=== PATIENT | female | born 1930 | race Caucasian/White ===

== ENCOUNTER 2017-09-17 20:27 | Emergency (ER) | payer MEDICARE, OTHER ==
[~2017-09-17] VITALS: Ht 154.9 cm; Wt 125.2 kg
[~2017-09-17 20:27] MED LIST: ACET500 PO; ALBU90OI INH; ASPI81CH PO; Albuterol2.5 MG/0.5 INH; Augmentin 875-1 EACH PO; BISA5EC PO; CYCL10 PO; DOXY100 PO; FENTANYL1 EAC1 TOP; FURO40 PO; Ferrous Sulfat324 MG PO; Flagyl500 MG PO; GABA300 PO; HYDACE5 PO; HYDR1TAB94 PO; LEVOXYL; LEVSOD100 PO; LIDO700A20 TOP; LISI20 PO; MAGCIT300 PO; METR500 PO; MIRALAX17 GM PO; Norco 5-325 Ta1 EACH PO; OMEP10ER PO; ONDA4ODT MM; OXYB5 PO; PANT40 PO; PARO10 PO; PRED20 PO; ROXICODONE5 MG PO; SACC250C PO; SPIR25 PO; STOOL SOFTNER; VICODIN; XARELTO20 MG PO
[2017-09-17 22:13] LABS: BASOPHILS ABSOLUTE AUTO 0.04 K/mm3 (0.00-0.23); BASOPHILS PERCENT AUTO 0 % (0-2); EOSINOPHILS ABSOLUTE AUTO 0.02 K/mm3 (0.00-0.68); EOSINOPHILS PERCENT AUTO 0 % (0-6); Hematocrit 41.7 % (33.0-51.0); IMMATURE GRAN ABSOLUTE AUTO 0.11 K/mm3 (0.00-0.10); IMMATURE GRAN PERCENT AUTO 1 % (0-1); LYMPHOCYTES ABSOLUTE AUTO 0.45 K/mm3 (0.84-5.20); LYMPHOCYTES PERCENT AUTO 3 % (21-46); MONOCYTES PERCENT AUTO 4 % (4-13); Mean Corpuscular HGB 30.8 pg (26.0-34.0); Mean Corpuscular HGB Conc 31.2 g/dL (31.5-36.5); Mean Corpuscular Volume 99 fL (80-100); Mean Platelet Volume 9.9 fL (9.1-12.4); NEUTROPHILS ABSOLUTE AUTO 16.84 K/mm3 (1.96-9.15); NEUTROPHILS PERCENT AUTO 93 % (41-73); Platelet Count 212 K/mm3 (150-400); RDW Coefficient Variation 13.2 % (11.7-14.2); RDW Standard Deviation 47.9 fL (35.1-46.3); Red Blood Cell Count 4.22 M/mm3 (3.80-5.20); White Blood Cell Count 18.16 K/mm3 (4.00-11.30)
[2017-09-17 22:32] LABS: Albumin, Blood 3.6 g/dL (3.4-5.0); Albumin/Globulin Ratio 0.8 (0.8-1.8); Bilirubin, Total 1.1 mg/dL (0.1-1.0); Bun/Creatinine Ratio 17.8 (12.0-20.0); Calcium, Blood 9.4 mg/dL (8.5-10.1); Creatinine, Blood 1.46 mg/dL (0.40-1.00); Globulin, Blood 4.6 g/dL (2.2-4.0); Potassium, Blood 4.8 mmol/L (3.5-5.5); Total Protein, Blood 8.2 g/dL (6.4-8.2)
[2017-09-17] MEDS ORDERED: Augmentin 500-1 EACH PO (23:05)
== END 2017-09-18 02:35 | disposition home or self-care (01) ==
LOC: ER 20:27
PROVIDERS: Emergency Medicine
DX: L03.115 Cellulitis of right lower limb (principal); Z79.899 Other long term (current) drug therapy; Z79.82 Long term (current) use of aspirin; Z91.018 Allergy to other foods; E11.22 Type 2 diabetes mellitus with diabetic chronic kidney disease; I12.9 Hypertensive chronic kidney disease with stage 1 through stage 4 chronic kidney disease, or unspecified chronic kidney disease; N18.3 Chronic kidney disease, stage 3 (moderate); F32.9 Major depressive disorder, single episode, unspecified; F41.9 Anxiety disorder, unspecified; E66.01 Morbid (severe) obesity due to excess calories; E03.9 Hypothyroidism, unspecified; Z68.43 Body mass index [BMI] 50.0-59.9, adult
CPT/HCPCS: 36415; 80053; 83605; 85025; 87040; 96365; 96366; 99283; J2543; J7030

== ENCOUNTER → 2017-09-18 | Outpatient (CLI) | payer MEDICARE, OTHER ==
[~2017-09-18] MED LIST changes: +Augmentin 500-1 EACH PO
[2017-09-18 15:56] LABS: BASOPHILS ABSOLUTE AUTO 0.04 K/mm3 (0.00-0.23); BASOPHILS PERCENT AUTO 0 % (0-2); EOSINOPHILS ABSOLUTE AUTO 0.03 K/mm3 (0.00-0.68); EOSINOPHILS PERCENT AUTO 0 % (0-6); Hemoglobin 11.2 g/dL (11.5-16.0); IMMATURE GRAN ABSOLUTE AUTO 0.06 K/mm3 (0.00-0.10); IMMATURE GRAN PERCENT AUTO 0 % (0-1); LYMPHOCYTES PERCENT AUTO 5 % (21-46); MONOCYTES ABSOLUTE AUTO 0.96 K/mm3 (0.16-1.47); MONOCYTES PERCENT AUTO 7 % (4-13); Mean Corpuscular HGB 31.6 pg (26.0-34.0); Mean Corpuscular Volume 99 fL (80-100); Mean Platelet Volume 9.9 fL (9.1-12.4); NEUTROPHILS ABSOLUTE AUTO 11.58 K/mm3 (1.96-9.15); NEUTROPHILS PERCENT AUTO 87 % (41-73); Platelet Count 182 K/mm3 (150-400); RDW Coefficient Variation 13.2 % (11.7-14.2); RDW Standard Deviation 47.8 fL (35.1-46.3); Red Blood Cell Count 3.54 M/mm3 (3.80-5.20); White Blood Cell Count 13.37 K/mm3 (4.00-11.30)
== END ==
LOC: LAB EV 15:51 → LAB SHORT 15:51
PROVIDERS: Family Medicine
DX: L03.115 Cellulitis of right lower limb (principal)
CPT/HCPCS: 85025

== ENCOUNTER → 2017-12-28 | Outpatient (CLI) | payer MEDICARE, OTHER | END | disposition home or self-care (01) | LOC: LAB EV 12:00 → LAB SHORT 12:00 | DX: R19.7 Diarrhea, unspecified (principal) | CPT/HCPCS: 87493 ==

== ENCOUNTER 2020-11-04 14:47 | Emergency (ER) | payer MEDICARE, OTHER ==
[~2020-11-04] VITALS: Ht 154.9 cm; Wt 119.8 kg
[2020-11-04] MEDS ORDERED: Valium5 MG PO (15:53)
[2020-11-04] MEDS ORDERED: ACETAMINOPHEN500 MG PO (15:53)
[2020-11-04] MEDS ORDERED: LIDO700A20 TOP (15:53)
== END 2020-11-04 16:30 | disposition home or self-care (01) ==
LOC: ER 14:47
DX: M54.5 Low back pain (principal); E03.9 Hypothyroidism, unspecified; I48.91 Unspecified atrial fibrillation; I12.9 Hypertensive chronic kidney disease with stage 1 through stage 4 chronic kidney disease, or unspecified chronic kidney disease; E11.22 Type 2 diabetes mellitus with diabetic chronic kidney disease; N18.30 Chronic kidney disease, stage 3 unspecified; Z79.899 Other long term (current) drug therapy; Z79.82 Long term (current) use of aspirin; Z91.018 Allergy to other foods
CPT/HCPCS: 99283; A9270

== ENCOUNTER 2021-04-20 15:28 | Emergency (ER) | payer MEDICARE, OTHER ==
[~2021-04-20] VITALS: Ht 157.5 cm; Wt 121.6 kg
[~2021-04-20 15:28] MED LIST changes: +ACETAMINOPHEN500 MG PO; +Valium5 MG PO
== END 2021-04-20 18:05 | disposition home or self-care (01) ==
LOC: ER 15:28
DX: S00.83XA Contusion of other part of head, initial encounter (principal); I12.9 Hypertensive chronic kidney disease with stage 1 through stage 4 chronic kidney disease, or unspecified chronic kidney disease; E11.22 Type 2 diabetes mellitus with diabetic chronic kidney disease; N18.30 Chronic kidney disease, stage 3 unspecified; E03.9 Hypothyroidism, unspecified; I48.91 Unspecified atrial fibrillation; Z91.018 Allergy to other foods; Z79.899 Other long term (current) drug therapy; W18.30XA Fall on same level, unspecified, initial encounter
CPT/HCPCS: 70450; 99284-25